=== PATIENT | female | born 1930 | race Caucasian/White ===

== ENCOUNTER 2018-08-21 14:31 | Emergency (ER) | payer OTHER ==
[~2018-08-21] VITALS: Ht 172.7 cm; Wt 59.0 kg
--- NOTE | 2018-08-21 14:41 | NUR ---
[id number], HEAD LAC, L ELBOW, L SHOULDER AND L KNEE SKIN TEAR S/P GLF. -KO, TO ER BED 9, HOOKED TO MONITOR, CHANGED TO GOWN, PROVIDED W WARM BLANKET, DR MABRY AT BEDSIDE
[2018-08-21] MEDS ORDERED: LIDOCAINE 1%-EPI 1:100,000 20 ML VIAL ONE (14:49)
[2018-08-21] MEDS ORDERED: BACITRACIN ZINC OINT PACKET 1 EA PACKET TP ONE ×2 (14:49→15:00)
[2018-08-21] MEDS ORDERED: TDAP [DIPH/PERTUSSIS/TET] 0.5 ML VIAL IM ONE ×2 (14:50→15:00)
--- NOTE | 2018-08-21 14:50 | NUR ---
WHEELED OUT VIA [facility] FOR CT SCAN.
[2018-08-21] MEDS ORDERED: LIDOCAINE 1%-EPI 1:100,000 50 ML VIAL IJ ONE (15:00)
[2018-08-21] MEDS ORDERED: BENZOIN COMPOUND TINCT 60 ML BOTTLE ONE (15:18)
--- NOTE | 2018-08-21 15:29 | NUR ---
DR MABRY AT BEDSIDE FOR SUTURING OF FOREHEAD LAC
--- NOTE | 2018-08-21 16:41 | NUR ---
Patient discharged to home with son in stable condition. Patient ambulatory with steady gait. Written and verbal after care instructions given. Patient verbalizes understanding of instruction.
[2018-08-21 16:42] VITALS: BP 132/68
== END 2018-08-21 16:43 | disposition home or self-care (01) ==
LOC: ER 14:34
DX: S01.81XA Laceration without foreign body of other part of head, initial encounter (principal); S51.012A Laceration without foreign body of left elbow, initial encounter; S81.012A Laceration without foreign body, left knee, initial encounter; S40.212A Abrasion of left shoulder, initial encounter; I10 Essential (primary) hypertension; I48.91 Unspecified atrial fibrillation; Z60.2 Problems related to living alone; W01.0XXA Fall on same level from slipping, tripping and stumbling without subsequent striking against object, initial encounter; Y93.89 Activity, other specified; Y92.481 Parking lot as the place of occurrence of the external cause; Y99.8 Other external cause status
CPT/HCPCS: 12013; 70450; 72125; 90471; 90715; 99284; A6402 ×3; A6403; J3490 ×2